=== PATIENT | female | born 1995 | race African-American/Black ===

== ENCOUNTER 2020-08-16 22:42 | Emergency (ER) | payer OTHER ==
--- NOTE | 2020-08-16 23:37 | ER Document Report ---
ED Medical Screen (RME) - General Chief Complaint: Vaginal Bleeding Stated Complaint: ABNORMAL VAGINAL BLEEDING Time Seen by Provider: 08/16/20 23:30 Mode of Arrival: Ambulatory Information source: Patient Notes: Patient is a 22-year-old female comes emergency room complaining dysfunctional uterine bleeding. Patient states that she had her last normal period on August 02 through the she was doing fine but then again on August 14 she started having some spotting and it is progressed to where she is bleeding and using at least 2 pads a day now. Patient states she had some pelvic discomfort but currently is not that bad. She does state that she is on control pills but she only takes them when they have intercourse. She does not smoke drink or do drugs. Physical examination: Patient is a well-nourished well-developed 24-year-old female no apparent distress on examination. Lungs: Bilateral breath sounds with breath sounds increased clear to auscultation. Cardiac regular rate and rhythm of 79 bpm on monitor no murmurs auscultated. Abdomen: In a sitting position patient has bowel sounds present 4 quads she is nontender in the quadrants of the abdomen but does have some moderate discomfort suprapubically. I have greeted and performed a rapid initial assessment of this patient. A comprehensive ED assessment and evaluation of the patient, analysis of test results and completion of the medical decision making process will be conducted by additional ED providers. Dictation of this chart was performed using voice recognition software; therefore, there may be some unintended grammatical errors. Physical Exam - Vital signs Vitals: Temp Pulse Resp BP Pulse Ox 98.1 F 79 16 133/70 H 100 08/16/20 22:50 08/16/20 22:50 08/16/20 22:50 08/16/20 22:50 08/16/20 22:50 Course - Vital Signs Vital signs: Temp Pulse Resp BP Pulse Ox 98.1 F 79 16 133/70 H 100 08/16/20 22:50 08/16/20 22:50 08/16/20 22:50 08/16/20 22:50 08/16/20 22:50
[2020-08-16 23:50] LABS: APPEARANCE,URINE CLEAR; BILIRUBIN,URINE NEGATIVE (NEGATIVE); COLOR,URINE YELLOW; GLUCOSE, URINE NEGATIVE (NEGATIVE); KETONES,URINE NEGATIVE (NEGATIVE); LEUKOCYTE ESTERASE,URINE NEGATIVE (NEGATIVE); NITRITE,URINE NEGATIVE (NEGATIVE); PROTEIN,URINE 30 mg/dL (NEGATIVE); URINE SPECIFIC GRAVITY 1.028
[2020-08-17 00:46] LABS: ABSOLUTE BASOPHILS # (AUTO) 0.1 10^3/uL (0.0-0.2); ABSOLUTE LYMPHOCYTES (AUTO) 1.8 10^3/uL (0.5-4.7); ABSOLUTE MONOCYTES (AUTO) 0.3 10^3/uL (0.1-1.4); ABSOLUTE NEUT (AUTO) 2.1 10^3/uL (1.7-8.2); BASOPHILS % (AUTO) 1.5 % (0-2); EOSINOPHILS % (AUTO) 0.8 % (0-6); HEMATOCRIT 35.4 % (36.0-47.0); LYMPHOCYTES % (AUTO) 41.1 % (13-45); MEAN CORPUSCULAR HEMOGLOBIN 31.4 pg (27.0-33.4); MEAN CORPUSCULAR VOLUME 92 fl (80-97); MONOCYTES % (AUTO) 8.1 % (3-13); PLATELET COUNT 236 10^3/uL (150-450); RED BLOOD COUNT 3.83 10^6/uL (3.72-5.28); RED CELL DISTRIBUTION WIDTH 12.8 % (11.5-14.0); SEGMENTED NEUTROPHILS % (AUTO) 48.5 % (42-78); TOTAL CELLS COUNTED % (AUTO) 100 %; WHITE BLOOD COUNT 4.3 10^3/uL (4.0-10.5)
--- NOTE | 2020-08-17 01:05 | ER Document Report ---
ED GI/ - General Chief Complaint: Vaginal Bleeding Stated Complaint: ABNORMAL VAGINAL BLEEDING Time Seen by Provider: 08/16/20 23:30 Primary Care Provider: [facility] [Provider Group] - Follow up in 3-5 days Mode of Arrival: Ambulatory Notes: Patient is a 24-year-old female who presents emergency department with a chief complaint of vaginal bleeding. Patient states that her last menstrual cycle was August 02. On 14 August, she ended up having some spotting and continues to bleed. Patient states that she can go through 2 pads in a day. States that she has some cramping in her lower abdomen. States that she takes control, but is not taking them on an everyday basis. She does not know she is having any vaginal discharge or odors. - Related Data Allergies/Adverse Reactions: No Known Allergies Allergy (Unverified 08/17/20 02:17) Past Medical History - General Information source: Patient - Social History Smoking Status: Never Smoker Family History: Reviewed & Not Pertinent Review of Systems - Review of Systems Notes: REVIEW OF SYSTEMS: CONSTITUTIONAL : Denies recent illness. Denies recent unintentional weight loss. Denies fever, chills, or sweats. EENT: Denies eye, ear, throat, or mouth pain, discharge, or symptoms. Denies nasal or sinus congestion. CARDIOVASCULAR: Denies chest pain. RESPIRATORY: Denies shortness of breath, cough, congestion, difficulty breathing, or wheezing. GASTROINTESTINAL: Denies nausea, vomiting, and diarrhea. Denies constipation. See HPI. GENITOURINARY: Denies difficulty urinating, burning, blood in urine, urgency or frequency. FEMALE GENITOURINARY: See HPI. MUSCULOSKELETAL: Denies neck and back pain. Denies joint pain or swelling. SKIN: Denies rash, itchiness, or lesions HEMATOLOGIC : Denies easy bruising or bleeding. LYMPHATIC: Denies swollen, painful, enlarged glands. NEUROLOGICAL: Denies no numbness or tingling denies weakness. Denies headache. Denies altered mental status. Denies alteration in speech. PSYCHIATRIC: Denies stress, anxiety, alteration in sleep patterns, or depression. All other systems reviewed and negative. Physical Exam - Vital signs Vitals: Temp Pulse Resp BP Pulse Ox 98.1 F 79 16 133/70 H 100 08/16/20 22:50 08/16/20 22:50 08/16/20 22:50 08/16/20 22:50 08/16/20 22:50 - Notes Notes: PHYSICAL EXAMINATION: GENERAL: Appears well, healthy, well-nourished, no acute distress. HEAD: Normocephalic, atraumatic. EYES: PERRL, conjunctiva normal, all extraocular movements intact, sclera nonicteric ENT: Moist mucous membranes. NECK: Supple, no noticeable swelling, redness, rash. Normal range of motion. CARDIOVASCULAR: S1-S2, regular rate, regular rhythm. Radial pulses 2+, normal. ABDOMEN: Normoactive bowel sounds. Soft, nontender, no guarding, no rebound tenderness, and no masses palpated. EXTREMITIES: Normal strength and range of motion, no pitting or edema. No cyanosis. NEUROLOGICAL: Moves all extremities upon command. Strength 5/5 in all extremities. PSYCH: Normal mood, normal affect. SKIN: Warm, dry. No rash, lesions, ulcerations noted. Normal skin turgor. CLINICAL HAEMATOLOGIST: Small to moderate amount of menstrual blood noted. Course - Re-evaluation Re-evalutation: 08/17/20 01:04 Pelvic exam done with CALISTA Christian at bedside. Only a moderate amount of menstrual blood noted. No large clots noted. Gonorrhea, chlamydia, and wet mount sent. 08/17/20 02:15 Hematology is unremarkable. Chemistries and LFTs are normal. Urinalysis shows a moderate amount of blood. No Leukocytes noted. Wet mount shows 4+ bacteria and 4+ epithelial cells. Will treat the patient for bacterial Vaginosis. No yeast or trichomonas noted. Follow-up precautions were given. Verbal discharge instructions were given to the patient. They verbalized understanding. They are stable for discharge. - Vital Signs Vital signs: Temp Pulse Resp BP Pulse Ox 97.8 F 63 15 124/70 100 08/17/20 03:02 08/17/20 03:02 08/17/20 03:02 08/17/20 03:02 08/17/20 03:02 - Laboratory Results Result Diagrams: 08/17/20 00:20 08/17/20 00:20 Laboratory Results Interpreted: 08/16/20 08/17/20 08/17/20 23:30 00:20 00:20 Hct 35.4 L Sodium 136.4 L Urine Protein 30 H Urine Blood MODERATE H Urine Urobilinogen 2.0 H Critical Laboratory Results Reviewed: No Critical Results - Radiology Results Critical Radiology Results Reviewed: No Critical Results Discharge - Discharge Clinical Impression: Vaginal bleeding, Bacterial vaginosis Condition: Stable Disposition: HOME, SELF-CARE Additional Instructions: You have an overgrowth of natural vaginal bacteria, called bacterial vaginosis. You are being treated with an antibiotic called metronidazole. Do not drink alcohol while taking this medication. Complete all of the antibiotic even if your symptoms have resolved. Return for abdominal pain, vomiting, fever of greater than 101F, or any other symptoms that are worrisome to you. Please follow-up with your [facility] or primary care doctor as needed. Follow-up with [facility]ER in regards to this visit. Discussed your control options with them. Prescriptions: Metronidazole [Flagyl 500 mg Tablet] 500 mg PO Q6H #28 tablet Forms: Return to Work Referrals: [facility] [Provider Group] - Follow up in 3-5 days
[2020-08-17 01:07] LABS: ALKALINE PHOSPHATASE 84 U/L (38-126); ANION GAP 5 (5-19); ASPARTATE AMINO TRANSFERASE 19 U/L (14-36); BILIRUBIN,TOTAL 0.3 mg/dL (0.2-1.3); BLOOD UREA NITROGEN 17 mg/dL (7-20); CALCIUM 9.2 mg/dL (8.4-10.2); CARBON DIOXIDE 29 mmol/L (22-30); CHLORIDE 102 mmol/L (98-107); GLUCOSE 81 mg/dL (75-110); POTASSIUM 3.7 mmol/L (3.6-5.0); TOTAL PROTEIN 7.7 g/dL (6.3-8.2)
[2020-08-17 01:22] LABS: BACTERIA (WET MOUNT) 4+ BACTERIA SEEN; EPITHELIALS (WET MOUNT) 4+ EPITHELIALS SEEN; RBCS (WET MOUNT) 3+ RBCS SEEN; T.VAGINALIS (WET MOUNT) NO TRICHOMONAS SEEN; WBCS (WET MOUNT) 1+ WBCS SEEN; YEAST (WET MOUNT) NO YEAST SEEN
[2020-08-17] MEDS ORDERED: LIDOCAINE 1% INJ-PF (10 MG/ML) 30 ML SDV INJ ONE (02:19)
[2020-08-17] MEDS ORDERED: CEFTRIAXONE INJ 250 MG VIAL IM ONE (02:19)
[2020-08-17 02:43] LABS: CHLAM PCR NOT DETECTED (NOT DETECT)
[2020-08-17 03:06] VITALS: BP 124/70
== END 2020-08-17 03:05 | disposition home or self-care (01) ==
LOC: ER 22:42
DX: N93.9 Abnormal uterine and vaginal bleeding, unspecified (principal); N76.0 Acute vaginitis; B96.89 Other specified bacterial agents as the cause of diseases classified elsewhere; R10.30 Lower abdominal pain, unspecified; Z79.3 Long term (current) use of hormonal contraceptives
CPT/HCPCS: 99284; 96372; 36415; 87086; 87210; 85025; 81025; 87088; 80053; 81001; 87491; 87591; J3490; J0696